=== PATIENT | male | born 1955 | race Caucasian/White ===

== ENCOUNTER 2018-04-05 15:39 | Emergency (ER) | payer MEDICARE, BC ==
[~2018-04-05] VITALS: Ht 185.4 cm; Wt 104.0 kg
[~2018-04-05 15:39] MED LIST: ASPI81TA30 PO; DILT240C90 PO; ROSU5TAB PO; WARF-55 PO; WARF3TAB56 PO
[2018-04-05 15:47] VITALS: BP 156/87
[2018-04-05 18:04] LABS: INR 2.8 INR
== END 2018-04-05 18:10 | disposition home or self-care (01) ==
LOC: ER 15:40
DX: S46.212A Strain of muscle, fascia and tendon of other parts of biceps, left arm, initial encounter (principal); E78.00 Pure hypercholesterolemia, unspecified; I10 Essential (primary) hypertension; Z98.890 Other specified postprocedural states; Z79.82 Long term (current) use of aspirin; Z79.899 Other long term (current) drug therapy; X58.XXXA Exposure to other specified factors, initial encounter; Y93.89 Activity, other specified; Y92.89 Other specified places as the place of occurrence of the external cause; Y99.8 Other external cause status
CPT/HCPCS: 36415; 85610; 93971; 99285; A4565; A6449